=== PATIENT | male | born 2000 | race African-American/Black ===

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

== ENCOUNTER 2022-01-21 11:37 | Emergency (ER) | payer OTHER, SELFPAY ==
[2022-01-21 11:40] VITALS: BP 148/91; PULSE 71; RESP 18; TEMP 37.6; O2SAT 100; BMI 21.9
--- NOTE | 2022-01-21 12:23 | HMH.EDUTC ---
[facility] [place] Disposition Clinical Impression: Exposure to STD Disposition: Home, Self-Care Condition on Discharge: Good Instructions: Chlamydia: The Silent STD, Chlamydia, DI for Chlamydia Additional Instructions: Make sure to follow up for your test results and further treatment Return if needed Straight to ER if any life threatening symptoms Referrals: Fabien Rivas MD [Primary Care Provider] - As needed Time of Disposition: 12:47 Medical Decision Making - Mushtaq Inquiry Pt receiving controlled substance: No Mushtaq was queried for this patient: No Vital Signs: 01/21/22 11:40 01/21/22 12:53 Temperature 99.7 F H 99.7 F H Temperature Source Oral Pulse Rate 71 Pulse Rate [Right Brachial] 71 Respiratory Rate 18 18 Blood Pressure 148/91 H Blood Pressure [Right Arm] 148/91 H Blood Pressure Mean [Right Arm] 110 Blood Pressure Source [Right Arm] Automatic Cuff Blood Pressure Position [Right Arm] Sitting 02 Sat by Pulse Oximetry 100 Oxygen Delivery Method Room Air - Lab Data Lab Results 01/21/22 12:23: Urine Color Yellow, Urine Appearance Clear, Urine pH 7.5, Ur Specific [place] 1.020, Urine Protein Negative, Urine Glucose (UA) Negative, Urine Ketones Negative, Urine Blood Trace-i, Urine Nitrate Negative, Urine Bilirubin Negative, Urine Urobilinogen 0.2, Ur Leukocyte Esterase Trace, Urine RBC 3-5, Urine WBC 3-5, Ur Squamous Epith Cells Occasional, Urine Bacteria None Orders (Tests/Meds): ED MEDICATIONS Discontinued Medications Generic Name Dose Route Start Last Admin Trade Name Sureshq PRN Reason Stop Dose Admin Azithromycin 1,000 mg 01/21/22 12:46 01/21/22 12:50 Azithromycin 250mg Tablet PO 01/21/22 12:47 1,000 mg ONCE ONE Administration ORDERS Category Date Time Status Urine Culture Stat Micro 01/21/22 12:24 Received [facility] [place] HPI - General Stated complaint: STD test Time Seen by Provider: 01/21/22 12:23 Mode of Arrival: Ambulatory Source of Information: Patient Limitations: No Limitations Description of Symptoms (Recalled from Triage Doc. by RN): PATIENT C/O BURNING WITH URINATION X 2 WEEKS. REQUESTING STD TEST HEENT Symptoms (Recalled from RN notes): No Resp Symptoms (Recalled from RN notes): No Skin Symptoms (Recalled from RN notes): No MS Symptoms (Recalled from RN notes): No Functional Status (Recalled from RN notes): WNL - History of Present Illness Provider Complaint: Patient states that he has been having burning with urination for about 2 weeks States that he is worried and wanted to get checked for GC and Chlamydia State that he has been having some unprotected sex States that girlfriend just recenlty tested postive for Chlaymydia - Related Data Home Medications Medication Instructions Recorded Confirmed albuterol sulfate 90 mcg/actuation 1 puff INHALATION Q6H PRN 06/28/19 09/01/20 aerosol inhaler Montelukast Sodium [Singulair 10mg 10 mg PO PM 09/21/19 09/01/20 tablet] Allergies Allergy/AdvReac Type Severity Reaction Status Date / Time amoxicillin [From AMOXIL] Allergy Intermediate I-RASH Verified 01/25/21 16:06 - Worker's Comp Is this a Worker's Comp case?: No [facility] History - Hepatitis A Screen Drug use history?: No High risk sexual behaviors?: No History of sexually transmitted infection?: No Currently employed?: No Childcare worker?: No Do you have indoor plumbing?: Yes Do you have electricity?: Yes Attestation statement:: This patient has been screened for Hepatitis A risk factors. I have reviewed the patient's past medical history: Yes Medical History: Reports:: Asthma Denies:: Cancer, Diabetes Mellitus Type 1, Diabetes Mellitus Type 2, MRSA Other Surgeries: Yes: No Previous Surgery Amputation: No Fractures: Yes (right thumb) - Social History Smoking Status: Unknown if ever smoked Alcohol Intake: never Occupational Status: employed Household Members: family Family Hx:: Cancer, Diabetes, Heart Attack, Stroke, Hyp
[2022-01-21 12:49] LABS: Microscopic, Urine URINE MICROSCOPIC (MICROSCOPIC)
[2022-01-21 12:53] VITALS: BP 148/91; PULSE 71; RESP 18; TEMP 37.6; O2SAT 100
[2022-01-21 12:58] LABS: Appearance,Urine CLEAR (Clear); Bilirubin,Urine Negative (Negative); Blood, Urine TRACE-I (Negative); Color,Urine YELLOW (Yellow); Glucose,Urine (UA) Negative (Negative); Ketones,Urine Negative (Negative); Leukocyte Esterase,Urine TRACE (Negative); Nitrate,Urine Negative (Negative); PH,Urine 7.5 (5.0-8.5); Protein,Urine Negative (Negative); Urobilinogen,Urine 0.2 EU/dl (0.2)
[2022-01-21 13:15] LABS: Squamous Epithelial Cell,Urine Occasional #/hpf (0-5)
[2022-01-24 23:35] LABS: Neisseria gonorrhoeae, NAA Negative (Negative)
== END 2022-01-21 13:02 | disposition home or self-care (01) ==
PROVIDERS: Emergency Provider Nurse Practitioner; PCP Internal Medicine Adolescent Medicine
DX: R30.9 Painful micturition, unspecified (principal); Z20.5 Contact with and (suspected) exposure to viral hepatitis; J45.909 Unspecified asthma, uncomplicated; Z79.51 Long term (current) use of inhaled steroids; Z79.899 Other long term (current) drug therapy; Z88.0 Allergy status to penicillin; Z82.49 Family history of ischemic heart disease and other diseases of the circulatory system; Z83.3 Family history of diabetes mellitus; Z80.9 Family history of malignant neoplasm, unspecified
CPT/HCPCS: 81001; 87086; 87491; 87591; 99213; G0463

== ENCOUNTER 2022-06-03 11:47 | Emergency (ER) | payer OTHER, SELFPAY ==
[2022-06-03 12:14] VITALS: BP 141/88; PULSE 53; RESP 16; TEMP 36.7; O2SAT 99; BMI 21.6
--- NOTE | 2022-06-03 12:18 | HMH.EDUTC ---
[facility] [place] Disposition Clinical Impression: Exposure to COVID-19 virus Disposition: Home, Self-Care Condition on Discharge: Good Instructions: DI for COVID-19 (Suspected or Confirmed ), Preventing the Spread of Coronavirus Discharge Instructions Additional Instructions: Drink plenty of fluids. Take tylenol for pain or fever. Return if you begin to have difficulty breathing. Follow up with your regular doctor. GO TO THE ER FOR ANY WORSENING SYMPTOMS Quarantine until you know the results of your covid-19 test. If it is positive, the health department should call you and give you further instructions about your length of Quarantine and other things. Notify your school or workplace of your results and follow their instructions regarding return to work/school. Referrals: Provider,Referral, [Primary Care Provider] - Time of Disposition: 12:19 Medical Decision Making - Medical Records Medical records reviewed: No: I reviewed the patient's medical records. - Mushtaq Inquiry Pt receiving controlled substance: No Vital Signs: 06/03/22 12:14 06/03/22 12:27 Temperature 98.1 F 98.1 F Temperature Source Oral Pulse Rate 53 L Pulse Rate [Left] 53 L Respiratory Rate 16 16 Blood Pressure 141/88 H Blood Pressure [Right Arm] 141/88 H Blood Pressure Mean [Right Arm] 105 02 Sat by Pulse Oximetry 99 - Lab Data Lab results reviewed: Yes: I reviewed the patient's lab results. [facility] [place] HPI - General Stated complaint: covid exposure, covid test Time Seen by Provider: 06/03/22 12:15 Description of Symptoms (Recalled from Triage Doc. by RN): patient comes in for covid test. no symptoms, only exposure HEENT Symptoms (Recalled from RN notes): No Resp Symptoms (Recalled from RN notes): No Skin Symptoms (Recalled from RN notes): No MS Symptoms (Recalled from RN notes): No Functional Status (Recalled from RN notes): n/a - History of Present Illness Provider Complaint: He is here to be tested for covid-19. He denies any symptoms. He was exposed to covid-19 4 days ago. - Related Data Home Medications Medication Instructions Recorded Confirmed albuterol sulfate 90 mcg/actuation 1 puff INHALATION Q6H PRN 06/28/19 09/01/20 aerosol inhaler Montelukast Sodium [Singulair 10mg 10 mg PO PM 09/21/19 09/01/20 tablet] Allergies Allergy/AdvReac Type Severity Reaction Status Date / Time amoxicillin [From AMOXIL] Allergy Intermediate I-RASH Verified 01/25/21 16:06 - Worker's Comp Is this a Worker's Comp case?: No [facility] History - Hepatitis A Screen Attestation statement:: This patient has been screened for Hepatitis A risk factors. I have reviewed the patient's past medical history: Yes Medical History: Reports:: Asthma Denies:: Cancer, Diabetes Mellitus Type 1, Diabetes Mellitus Type 2, MRSA Other Surgeries: Yes: No Previous Surgery Amputation: No Fractures: Yes (right thumb) - Social History Smoking Status: Unknown if ever smoked Alcohol Intake: never Occupational Status: employed Household Members: family Family Hx:: Cancer, Diabetes, Heart Attack, Stroke, Hypertension ROS Obtained: Yes All systems reviewed & no additional complaints - Constitutional Constitutional: Reports as per HPI, Denies chills, Denies fever(s) - Eyes Eyes: Denies eye discharge - ENT Ears, Nose, Mouth, and Throat: Denies dizziness, Denies otalgia, Denies sore throat - Cardiovascular Cardiovascular: Denies chest pain - Respiratory Respiratory: Denies chest congestion, Reports cough, Denies dyspnea, Denies stridor, Denies wheezing Physical Exam - General General appearance: alert, in no apparent distress - Head Head exam: atraumatic, normocephalic, normal inspection - Eye Eye exam: Present: normal appearance, PERRL, EOMI - ENT ENT exam: Present: normal exam, normal oropharynx, mucous membranes moist, TM's normal bilaterally, normal external ear exam - Neck Neck exam: Present: normal
[2022-06-03 12:27] VITALS: BP 141/88; PULSE 53; RESP 16; TEMP 36.7
== END 2022-06-03 12:28 | disposition home or self-care (01) ==
PROVIDERS: Emergency Provider Nurse Practitioner Family
DX: Z20.822 Contact with and (suspected) exposure to COVID-19 (principal)
CPT/HCPCS: 99212; C9803; G0463; U0003; U0005

== ENCOUNTER 2022-11-29 12:10 | Emergency (ER) | payer OTHER, SELFPAY ==
--- NOTE | 2022-11-29 12:22 | EXP.UTC ---
Discharge Plan Disposition Patient Disposition: Home, Self-Care Condition: Good Prescriptions Prescriptions: New doxycycline hyclate [doxycycline hyclate] 100 mg capsule 100 mg PO Q12 10 Days Qty: 20 0RF No Action albuterol sulfate 90 mcg/actuation HFA aerosol inhaler 1 puff INHALATION Q6H PRN (Reason: ASTHMA) Referrals Follow up/Referrals: Provider,Referral, MD [Primary Care Provider] - See instructions Activity Restrictions/Add. Instructions Additional Instructions/Restrictions: Drink plenty of fluids. Take the medications as directed. Eat food with the antibiotics. This antibiotic is known to cause GI upset on an empty stomach. Follow up with your regular doctor. GO TO THE ER FOR ANY WORSENING SYMPTOMS Abstain from having uprotected sex for 7 days after you complete the antibiotics (doxycycline). Clinical Impressions Clinical Impression: STD exposure Discharge ED Provider: Ramón Lowe [facility] [place] HPI General Stated complaint: possible chlamydia Time Seen by Provider: 11/29/22 12:22 History of Present Illness Provider Complaint: He states that he has been exposed to chlamydia through unprotected sex. He denies any symptoms. Related Data Home Medications Medication Instructions Recorded Confirmed albuterol sulfate 90 mcg/actuation 1 puff inhalation Q6H PRN ASTHMA 06/28/19 11/29/22 aerosol inhaler Previous Rx's Medication Instructions Recorded doxycycline hyclate 100 mg capsule 100 mg PO Q12 10 days #20 caps 11/29/22 Allergies Allergy/AdvReac Type Severity Reaction Status Date / Time amoxicillin [From AMOXIL] Allergy Intermediate I-RASH Verified 11/29/22 12:43 [facility] Disclaimer: The information contained in this section may have been updated after the patient was seen, as this information can be updated by other users. Social History Smoking Status: Unknown if ever smoked alcohol intake: never current occupational status: employed Travel in the last 8 weeks: None household members: family ROS Obtained: Yes All systems reviewed & no additional complaints except as documented Constitutional Constitutional: Denies chills and Denies fever(s) Eyes Eyes: Denies eye discharge ENT Ears, Nose, Mouth, and Throat: Denies dizziness, Denies otalgia and Denies sore throat Cardiovascular Cardiovascular: Denies chest pain Respiratory Respiratory: Denies shortness of breath, Denies chest congestion, Denies cough, Denies stridor and Denies wheezing Gastrointestinal Gastrointestingal: Denies nausea or vomiting Genitourinary Male Genitourinary: Reports as per HPI, Denies hematuria, Denies oliguria, Denies penile discharge, Denies scrotal swelling, Denies urinary frequency and Denies urinary hesitancy Musculoskeletal Musculoskeletal: Reports system reviewed and no additional complaints, except as documented and Denies arthralgias Integumentary/Breasts Skin/Breast: Denies rash Neurologic Neurologic: Denies dizziness and Denies paresthesias Allergic/Immunologic Allergic/Immunologic: Denies wheezing Physical Exam General General appearance: alert and in no apparent distress Head Head exam: atraumatic, normocephalic and normal inspection Eye Eye exam: Present normal appearance, PERRL and EOMI ENT ENT exam: Present normal exam, normal oropharynx, mucous membranes moist, TM's normal bilaterally and normal external ear exam Neck Neck exam: Present normal inspection, full ROM and trachea midline; Absent meningismus or lymphadenopathy Chest Chest inspection: Present normal inspection and symmetric chest wall rise; Absent tenderness Respiratory Respiratory exam: Present normal lung sounds bilaterally; Absent respiratory distress Cardiovascular Cardiovascular exam: Present regular rate and normal rhythm; Absent JVD Abdominal Exam Abdominal exam: Present soft and normal bowel sounds; Absent distention, tenderness or
[2022-11-29 12:30] VITALS: BP 166/84; PULSE 64; RESP 19; TEMP 36.9; O2SAT 100; BMI 22.3
[2022-11-29 12:55] VITALS: BP 166/84; PULSE 64; RESP 19; TEMP 36.9; O2SAT 100
[2022-12-02 00:05] LABS: Neisseria gonorrhoeae, NAA Negative (Negative)
== END 2022-11-29 12:55 | disposition home or self-care (01) ==
PROVIDERS: Emergency Provider Nurse Practitioner Family
DX: A56.8 Sexually transmitted chlamydial infection of other sites (principal)
CPT/HCPCS: 87491; 87591; 99212; 99213; G0463

== ENCOUNTER 2023-04-17 15:52 | Emergency (ER) | payer OTHER, SELFPAY ==
[2023-04-17 16:06] VITALS: BP 143/82; PULSE 93; RESP 14; TEMP 36.6; O2SAT 98; BMI 22.9
--- NOTE | 2023-04-17 16:16 | EXP.UTC ---
Discharge Plan Disposition Patient Disposition: Home, Self-Care Condition: Good Prescriptions Prescriptions: New doxycycline hyclate [doxycycline hyclate] 100 mg capsule 100 mg PO Q12 10 Days Qty: 20 0RF No Action albuterol sulfate [Ventolin HFA] 90 mcg/actuation HFA aerosol inhaler 2 puff INHALATION NEEDED PRN (Reason: Asthma) Activity Restrictions/Add. Instructions Additional Instructions/Restrictions: Apply warm wet compresses to the affected sites three or four times per day for 15 minutes as tolerated. Take the antibiotics as directed. Follow up with your regular doctor. GO TO THE ER FOR ANY WORSENING SYMPTOMS OR CONCERNS Clinical Impressions Clinical Impression: Abscess of perineum Stand Alone Forms Stand Alone Forms: Work/School Release Instructions Patient Instructions: Doxycycline, DI for Skin Abscess Discharge ED Provider: Ramón Lowe [facility] General Stated complaint: Cyst on girish area Mode of Arrival: Ambulatory Source of Information: Patient Limitations: No Limitations Time Seen by Provider: 04/17/23 16:16 Description of Symptoms (Recalled from Triage Doc. by RN): patient states there is a concerning area in my groin HEENT Symptoms (Recalled from RN notes): No Resp Symptoms (Recalled from RN notes): No Skin Symptoms (Recalled from RN notes): Yes MS Symptoms (Recalled from RN notes): No Functional Status (Recalled from RN notes): na History of Present Illness Provider Complaint: He states that he has a painful swollen area on the left side of his groin. This has been present for the past 5 days. He denies any fever/chills. Related Data Home Medications Medication Instructions Recorded Confirmed albuterol sulfate 90 mcg/actuation 2 puff inhalation NEEDED PRN 04/17/23 04/17/23 aerosol inhaler (Ventolin HFA) Asthma Previous Rx's Medication Instructions Recorded doxycycline hyclate 100 mg capsule 100 mg PO Q12 10 days #20 caps 04/17/23 Allergies Allergy/AdvReac Type Severity Reaction Status Date / Time amoxicillin [From AMOXIL] Allergy Intermediate I-RASH Verified 04/17/23 16:05 Worker's Comp Is this a Worker's Comp case?: No [facility] Disclaimer: The information contained in this section may have been updated after the patient was seen, as this information can be updated by other users. Medical History Asthma Surgical History H/O thumb surgery Family History Other No significant family history Social History Smoking Status: Unknown if ever smoked alcohol intake: never current occupational status: employed Travel in the last 8 weeks: None household members: family ROS Obtained: Yes All systems reviewed & no additional complaints except as documented Constitutional Constitutional: Denies chills and Denies fever(s) Eyes Eyes: Denies eye discharge ENT Ears, Nose, Mouth, and Throat: Denies dizziness, Denies otalgia and Denies sore throat Cardiovascular Cardiovascular: Denies chest pain Respiratory Respiratory: Denies shortness of breath, Denies chest congestion, Denies cough, Denies stridor and Denies wheezing Gastrointestinal Gastrointestingal: Denies nausea or vomiting Musculoskeletal Musculoskeletal: Reports system reviewed and no additional complaints, except as documented and Denies arthralgias Integumentary/Breasts Skin/Breast: Reports as per HPI Neurologic Neurologic: Denies dizziness and Denies paresthesias Allergic/Immunologic Allergic/Immunologic: Denies wheezing Physical Exam General General appearance: alert and in no apparent distress Head Head exam: atraumatic, normocephalic and normal inspection Eye Eye exam: Present normal appearance, PERRL and EOMI ENT ENT exam: Present normal exam, normal o
[2023-04-17 16:38] VITALS: BP 145/85; PULSE 83; RESP 16; TEMP 36.5; O2SAT 97
== END 2023-04-17 16:40 | disposition home or self-care (01) ==
PROVIDERS: Emergency Provider Nurse Practitioner Family
DX: L02.215 Cutaneous abscess of perineum (principal)
CPT/HCPCS: 99212; 99214; G0463

== ENCOUNTER 2023-07-11 16:38 | Emergency (ER) | payer OTHER, SELFPAY ==
[2023-07-11 16:45] VITALS: BP 124/70; PULSE 58; RESP 22; TEMP 36.8; O2SAT 100; BMI 22.9
--- NOTE | 2023-07-11 17:00 | EXP.UTC ---
Discharge Plan Disposition Patient Disposition: Home, Self-Care Condition: Good Prescriptions Prescriptions: New cyclobenzaprine 10 mg Tablet 10 mg PO BID PRN (Reason: Muscle Spasm) Qty: 20 0RF methylprednisolone 4 mg Tablets,Dose Pack 4 mg PO DIRECTED Qty: 21 0RF No Action sulfamethoxazole-trimethoprim [Bactrim DS] 800-160 mg tablet 1 tab PO BID 10 Days Qty: 20 0RF albuterol sulfate [Ventolin HFA] 90 mcg/actuation HFA aerosol inhaler 2 puff INHALATION NEEDED PRN (Reason: Asthma) doxycycline hyclate [doxycycline hyclate] 100 mg capsule 100 mg PO Q12 10 Days Qty: 20 0RF Referrals Follow up/Referrals: Cornelio Kennedy MD [Primary Care Provider] - See instructions Activity Restrictions/Add. Instructions Additional Instructions/Restrictions: Go home and rest. It would be best if you rested tomorrow too. No heavy lifting and No twisting for the next few days. The muscle relaxer (cyclobenzaprine--Flexeril) will make you drowsy, so don't drive or operate heavy machinery after taking it. Don't start the oral steroids (medrol dose pack) until tomorrow, since you had the shots in here today. Follow up with your regular doctor. GO TO THE ER FOR ANY WORSENING SYMPTOMS OR CONCERN, ESPECIALLY BOWEL OR BLADDER ISSUES, SADDLE AREA NUMBNESS, FEVER, ETC Clinical Impressions Clinical Impression: Low back pain, Low back strain Stand Alone Forms Stand Alone Forms: Work/School Release Instructions Patient Instructions: Low Back Pain, DI for Low Back Pain, Cyclobenzaprine, Methylprednisolone Injection, Ketorolac Injection Discharge ED Provider: Ramón Lowe [facility] General Stated complaint: lower back pain Mode of Arrival: Ambulatory Source of Information: Patient Limitations: No Limitations Time Seen by Provider: 07/11/23 17:00 Description of Symptoms (Recalled from Triage Doc. by RN): PATIENT C/O LOWER BACK PAIN X APPROX 1.5 WEEKS HEENT Symptoms (Recalled from RN notes): No Resp Symptoms (Recalled from RN notes): No Skin Symptoms (Recalled from RN notes): No MS Symptoms (Recalled from RN notes): Yes Functional Status (Recalled from RN notes): WNL History of Present Illness Provider Complaint: He states that he felt something pull in his right lower back when he was lifting something heavy around 4 days ago. Since then he has had worsening right sided low back pain that radiates down his right leg at time. He denies any bowel or bladder issues. Related Data Home Medications Medication Instructions Recorded Confirmed albuterol sulfate 90 mcg/actuation 2 puff inhalation NEEDED PRN 04/17/23 04/17/23 aerosol inhaler (Ventolin HFA) Asthma Previous Rx's Medication Instructions Recorded doxycycline hyclate 100 mg capsule 100 mg PO Q12 10 days #20 caps 04/17/23 sulfamethoxazole 800 1 tab PO BID 10 days #20 tabs 04/19/23 mg-trimethoprim 160 mg tablet (Bactrim DS) cyclobenzaprine 10 mg tablet 10 mg PO BID PRN Muscle Spasm #20 07/11/23 tabs methylprednisolone 4 mg tablets in 4 mg PO DIRECTED #21 tabs 07/11/23 a dose pack Allergies Allergy/AdvReac Type Severity Reaction Status Date / Time amoxicillin [From AMOXIL] Allergy Intermediate I-RASH Verified 04/17/23 16:05 Worker's Comp Is this a Worker's Comp case?: No [facility] Disclaimer: The information contained in this section may have been updated after the patient was seen, as this information can be updated by other users. Medical History Asthma Surgical History H/O thumb surgery Family History Other No significant family history Social History Smoking Status: Unknown if ever smoked alcohol intake: never current occupational status: employed Travel in the last 8 weeks: None househol
[2023-07-11 17:38] VITALS: BP 124/70; PULSE 58; RESP 22; TEMP 36.8; O2SAT 100
== END 2023-07-11 17:39 | disposition home or self-care (01) ==
PROVIDERS: Emergency Provider Nurse Practitioner Family; PCP Family Medicine
DX: S39.012A Strain of muscle, fascia and tendon of lower back, initial encounter (principal); J45.909 Unspecified asthma, uncomplicated; X50.0XXA Overexertion from strenuous movement or load, initial encounter
CPT/HCPCS: 96372; 99212; 99214; G0463

== ENCOUNTER 2024-01-18 13:23 | Emergency (ER) | payer SELFPAY ==
--- NOTE | 2024-01-18 14:09 | EXP.UTC ---
Discharge Plan Disposition Patient Disposition: Home, Self-Care Condition: Good Prescriptions Prescriptions: New methylprednisolone 4 mg Tablets,Dose Pack 4 mg PO DIRECTED 6 Days Qty: 21 0RF Rx Instructions: Take 1 pack as directed for 6 days pwgyenpwfdylwoc-npcneoggo-HC [Bromfed DM] 2-30-10 mg/5 mL Syrup 5 ml PO Q6H PRN (Reason: Cough) Qty: 240 0RF ondansetron 4 mg Tablet,Disintegrating 4 mg PO Q8H PRN (Reason: Nausea) Qty: 12 0RF cefdinir 300 mg capsule 300 mg PO BID Qty: 20 0RF No Action albuterol sulfate [Ventolin HFA] 90 mcg/actuation HFA aerosol inhaler 2 puff INHALATION NEEDED PRN (Reason: Asthma) Referrals Follow up/Referrals: Cornelio Kennedy MD [Primary Care Provider] - See instructions Activity Restrictions/Add. Instructions Additional Instructions/Restrictions: Drink plenty of fluids. Take tylenol or ibuprofen for pain or fever. Take the medications as directed. Follow up with your regular doctor. GO TO THE ER FOR ANY WORSENING SYMPTOMS Throw your tooth brush away and get a new one. Clinical Impressions Clinical Impression: Strep throat Stand Alone Forms Stand Alone Forms: Work/School Release Instructions Patient Instructions: Strep Throat, DI for Strep Throat Discharge ED Provider: Ramón Lowe [facility] [place] General Stated complaint: sore throat, headache, cough Time Seen by Provider: 01/18/24 14:08 History of Present Illness Provider Complaint: He states that he has had fever, very sore throat, sinus drainage, cough, and nausea for the past 2 days. Related Data Home Medications Medication Instructions Recorded Confirmed albuterol sulfate 90 mcg/actuation 2 puff inhalation NEEDED PRN 04/17/23 01/18/24 aerosol inhaler (Ventolin HFA) Asthma Previous Rx's Medication Instructions Recorded njvguozfymrxjdw-dkzyenlmgvzhovo-RF 5 ml PO Q6H PRN Cough #240 mL 01/18/24 2 mg-30 mg-10 mg/5 mL oral syrup (Bromfed DM) cefdinir 300 mg capsule 300 mg PO BID #20 caps 01/18/24 methylprednisolone 4 mg tablets in 4 mg PO DIRECTED 6 days #21 tabs 01/18/24 a dose pack ondansetron 4 mg disintegrating 4 mg PO Q8H PRN Nausea #12 tabs 01/18/24 tablet Allergies Allergy/AdvReac Type Severity Reaction Status Date / Time amoxicillin [From AMOXIL] Allergy Intermediate I-RASH Verified 01/18/24 14:45 [facility] Disclaimer: The information contained in this section may have been updated after the patient was seen, as this information can be updated by other users. Medical History Asthma Surgical History H/O thumb surgery Family History Other No significant family history Social History Smoking Status: Unknown if ever smoked alcohol intake: never current occupational status: employed Travel in the last 8 weeks: None household members: family ROS Obtained: Yes All systems reviewed & no additional complaints except as documented Constitutional Constitutional: Reports chills and Reports fever(s) Eyes Eyes: Denies eye discharge ENT Ears, Nose, Mouth, and Throat: Reports as per HPI Cardiovascular Cardiovascular: Denies chest pain Respiratory Respiratory: Denies chest congestion and Reports cough Gastrointestinal Gastrointestingal: Reports nausea; Denies abdominal pain, constipation, cramping, diarrhea or vomiting Musculoskeletal Musculoskeletal: Denies arthralgias Integumentary/Breasts Skin/Breast: Denies rash Neurologic Neurologic: Denies paresthesias Physical Exam General General appearance: alert and in no apparent distress Head Head exam: atraumatic, normocephalic and normal inspection Eye Eye exam: Present normal appearance, PERRL and EOMI ENT ENT exam: Present mucous membranes moist and normal external ear exam Expanded ENT Exam TM/Canal exam: Bilateral TM: erythema and bulging Nose exam: Absent sinus tenderness Mouth exam: Present normal external inspection; Absent drooling Teeth exam: Present normal inspection Throat exam: Present tonsillar erythema, tonsillomegaly and tonsillar exudate Neck Neck exam: Present normal inspection, full ROM and trachea midline; Absent tenderness, meningismus or lymphadenopathy Chest Chest inspection: Present normal inspection and symmetric chest wall rise; Absent tenderness Respiratory Respiratory exam: Present normal lung sounds bilaterally; Absent respiratory distress, wheezes, stridor or accessory muscle use Cardiovascular Cardiovascular exam: Present regular rate and normal rhythm; Absent systolic murmur or diastolic murmur Abdominal Exam Abdominal exam: Present soft and normal bowel sounds; Absent distention, tenderness, guarding, rebound or rigidity Extremities Exam Extremities exam: Present normal inspection and normal capillary refill; Absent calf tenderness Back Exam Back exam: Present normal inspection and full ROM; Absent tenderness, CVA tenderness (R) or CVA tenderness (L) Neurological Exam Neurological exam: Present alert, oriented X3 and CN II-XII intact Psychiatric Psychiatric exam: Present normal affect and normal mood Skin Skin exam: Present warm, dry, intact and normal color Medical Decision Making Medical Records Medical records reviewed: No I reviewed the patient's medical records. Mushtaq Inquiry Pt receiving controlled substance: No
[2024-01-18 14:25] VITALS: BP 137/90; PULSE 58; RESP 16; TEMP 37.1; O2SAT 100; BMI 22.3
[2024-01-18 15:01] LABS: UTC Influenza A Antigen Negative (Negative); UTC Influenza B Antigen Negative (Negative); UTC Strep Screen (Rapid) Positive (Negative)
[2024-01-18 15:40] VITALS: BP 138/90; PULSE 71; RESP 18; TEMP 36.4; O2SAT 97
== END 2024-01-18 15:40 | disposition home or self-care (01) ==
PROVIDERS: Emergency Provider Nurse Practitioner Family; PCP Family Medicine
DX: J02.0 Streptococcal pharyngitis (principal); R07.0 Pain in throat; R51.9 Headache, unspecified; R50.9 Fever, unspecified; R05.9 Cough, unspecified; R11.0 Nausea; R09.81 Nasal congestion
CPT/HCPCS: 87804; 87880; 99212; 99214; G0463

== ENCOUNTER 2024-03-23 22:07 | Emergency (ER) | payer SELFPAY ==
[2024-03-23 22:07] VITALS: BP 128/86; PULSE 66; RESP 16; TEMP 36.8; O2SAT 100; BMI 22.9
--- NOTE | 2024-03-24 00:41 | HMH.EDGENADL ---
Discharge Plan Disposition Patient Disposition: Home, Self-Care Condition: Good Prescriptions Prescriptions: New doxycycline hyclate 100 mg tablet 100 mg PO BID 7 Days Qty: 14 0RF No Action albuterol sulfate [Ventolin HFA] 90 mcg/actuation HFA aerosol inhaler 2 puff INHALATION NEEDED PRN (Reason: Asthma) methylprednisolone 4 mg Tablets,Dose Pack 4 mg PO DIRECTED 6 Days Qty: 21 0RF Rx Instructions: Take 1 pack as directed for 6 days ukcwyizxzrqffnf-eqbxeawqq-VY [Bromfed DM] 2-30-10 mg/5 mL Syrup 5 ml PO Q6H PRN (Reason: Cough) Qty: 240 0RF ondansetron 4 mg Tablet,Disintegrating 4 mg PO Q8H PRN (Reason: Nausea) Qty: 12 0RF cefdinir 300 mg capsule 300 mg PO BID Qty: 20 0RF Referrals Follow up/Referrals: Fabien Rivas MD [Primary Care Provider] - See instructions Activity Restrictions/Add. Instructions Additional Instructions/Restrictions: You were evaluated in the emergency department today. Please slat pickler your prescription for antibiotics and take the full course as prescribed. Have any sexual partners treated. Avoid sexual intercourse until you are you have completed your antibiotic treatment. Your sexually-transmitted testing is pending at this time. It will result in several days. You may follow results in your chart. Return to the emergency department for new or worsening symptoms. Please follow-up with your primary care provider. Clinical Impressions Clinical Impression: Dysuria, Urethral discharge Instructions Patient Instructions: How to Detect and Treat STDs Discharge ED Provider: Becky Saunders General Adult HPI General Chief complaint: Urogenital-Male Stated complaint: STD panel Time Seen by Provider: 03/24/24 00:14 Mode of Arrival: Ambulatory Source of Information: Patient Limitations: No Limitations Description of Symptoms (Recalled from ER Triage Doc. by RN): patient with CC of yellow drainage coming from penis, and burning sensation when he pees x 2days. History of Present Illness HPI narrative: This patient is a 24-year-old male who denies significant past medical history presenting to the emergency department for evaluation with concern for yellow drainage coming from his penis as well as burning when he pees x 2 days. He notes that he is concerned he has a sexually transmitted infection. He denies any other concerns, such as fevers, chills, nausea, vomiting, flank pain, or other issues. He denies any known history of sexually transmitted infections. No bumps, lesions, or wounds. Related Data Home Medications Medication Instructions Recorded Confirmed albuterol sulfate 90 mcg/actuation 2 puff inhalation NEEDED PRN 04/17/23 01/18/24 aerosol inhaler (Ventolin HFA) Asthma Previous Rx's Medication Instructions Recorded ghxwqdecxgpxrxm-ppzqwqbdniafrdc-EU 5 ml PO Q6H PRN Cough #240 mL 01/18/24 2 mg-30 mg-10 mg/5 mL oral syrup (Bromfed DM) cefdinir 300 mg capsule 300 mg PO BID #20 caps 01/18/24 methylprednisolone 4 mg tablets in 4 mg PO DIRECTED 6 days #21 tabs 01/18/24 a dose pack ondansetron 4 mg disintegrating 4 mg PO Q8H PRN Nausea #12 tabs 01/18/24 tablet doxycycline hyclate 100 mg tablet 100 mg PO BID 7 days #14 tabs 03/24/24 Allergies Allergy/AdvReac Type Severity Reaction Status Date / Time amoxicillin [From AMOXIL] Allergy Intermediate I-RASH Verified 01/18/24 14:45 [facility] Disclaimer: The information contained in this section may have been updated after the patient was seen, as this information can be updated by other users. Medical History Asthma Surgical History H/O thumb surgery Family History Other No significant family history Social History Smoking Status: Current every day smoker alcohol intake: never current occupational status: employed Travel in the last 8 weeks: None household members: family ROS Obtained: Yes All systems reviewed & no additional complaints except as documented Physical Exam General General appearance: alert and in no apparent distress Head Head exam: atraumatic and normocephalic Eye Eye exam: Present normal appearance, PERRL and EOMI ENT ENT exam: Present normal exam, normal oropharynx, mucous membranes moist and normal external ear exam Neck Neck exam: Present normal inspection, full ROM and trachea midline; Absent tenderness Chest Chest inspection: Present normal inspection and symmetric chest wall rise; Absent tenderness Respiratory Respiratory exam: Present normal lung sounds bilaterally; Absent respiratory distress, wheezes, stridor or accessory muscle use Cardiovascular Cardiovascular exam: Present regular rate and normal rhythm Abdominal Exam Abdominal exam: Present soft; Absent distention, tenderness or guarding Extremities Exam Extremities exam: Present normal inspection, full ROM and normal capillary refill; Absent tenderness or edema Back Exam Back exam: Present normal inspection and full ROM; Absent tenderness Neurological Exam Neurological exam: Present alert, oriented X3, CN II-XII intact and normal gait; Absent motor sensory deficit Psychiatric Psychiatric exam: Present normal affect and normal mood Skin Skin exam: Present warm and dry Medical Decision Making Medical Records Medical records reviewed: Yes I reviewed the patient's medical records. Mushtaq Inquiry Pt receiving controlled substance: No Vital Signs: 03/23/24 22:07 03/24/24 01:33 Temperature 98.3 F 98.0 F Temperature Source Oral Oral Pulse Rate 87 Pulse Rate [Right] 66 Respiratory Rate 16 16 Blood Pressure 123/82 Blood Pressure [Right Arm] 128/86 Blood Pressure Mean [Right Arm] 100 Blood Pressure Source Automatic Cuff Blood Pressure Source [Right Arm] Automatic Cuff Blood Pressure Position Sitting Blood Pressure Position [Right Arm] Sitting 02 Sat by Pulse Oximetry 100 Oxygen Delivery Method Room Air Room Air Lab Data Lab results reviewed: Yes I reviewed the patient's lab results. Lab Results 03/24/24 00:45: Urine Color Yellow, Urine Appearance Cloudy, Urine pH 7.0, Ur Specific [place] 1.025, Urine Protein Trace, Urine Glucose (UA) Negative, Urine Ketones Negative, Urine Blood Trace-i, Urine Nitrate Negative, Urine Bilirubin 1+ A, Urine Urobilinogen 0.2, Ur Leukocyte Esterase 2+ A, Urine RBC None, Urine WBC Tntc, Ur Squamous Epith Cells Occasional, Urine Bacteria 1+ Orders (Tests/Meds): ED MEDICATIONS Discontinued Medications Generic Name Dose Route Start Last Admin Trade Name Leatha PRN Reason Stop Dose Admin Ceftriaxone Sodium 500 mg 03/24/24 00:27 03/24/24 00:50 Ceftriaxone 500mg Vial IM 03/24/24 00:28 500 mg ONCE ONE Administration Doxycycline Hyclate 100 mg 03/24/24 00:27 03/24/24 00:50 Doxycycline Hycl 100 Mg Tablet PO 03/24/24 00:28 100 mg ONCE ONE Administration Lidocaine HCl 0 ml 03/24/24 00:27 03/24/24 00:50 Lidocaine 1% 5ml Pf Vial IM 03/24/24 00:28 5 ml ONCE ONE Administration ORDERS Category Date Time Status UA [Urinalysis and Microscopic] Stat Lab 03/24/24 00:45 Completed Urine Culture Stat Micro 03/24/24 00:26 Received Medical Decision Narrative: In summary, this patient is a 24-year-old male presenting to the Emergency Department for evaluation of drainage from his penis as well as dysuria x 2 days. Differential diagnoses considered include but are not limited to gonorrhea, chlamydia, cystitis, pyelonephritis. Ruling out the most morbid conditions drove assessment. I reviewed patient's past medical records which was pertinent for a positive prior chlamydia test. On exam, the patient is well-appearing without systemic symptoms or abnormality of vital signs. No wounds or lesions concerning for herpes. After shared decision-making with the patient, will plan to obtain urine gonorrhea and committee a testing and treat empirically with IM Rocephin as well as oral doxycycline. I had a long discussion with the patient regarding completing treatment, avoiding unprotected sex until treatment is completed, and having all partners get treated to reduce risk of reinfection. He expressed understanding and agreement. Patient was discharged home after all questions were answered with prescription for doxycycline. He received IM Rocephin prior to discharge. Critical Care Critical Care Time Critical Care Time: No
[2024-03-24] MEDS: cefTRIAXone 500MG VIAL 500 MG IM (00:50)
[2024-03-24] MEDS: DOXYCYCLINE HYCL 100 MG TABLET PO (00:50)
[2024-03-24] MEDS: LIDOCAINE 1% 5ML PF VIAL IM (00:50)
[2024-03-24 01:00] LABS: Microscopic, Urine URINE MICROSCOPIC (MICROSCOPIC)
[2024-03-24 01:08] LABS: Appearance,Urine CLOUDY (Clear); Blood, Urine TRACE-I (Negative); Color,Urine YELLOW (Yellow); Glucose,Urine (UA) Negative (Negative); Ketones,Urine Negative (Negative); Leukocyte Esterase,Urine 2+ (Negative); Nitrate,Urine Negative (Negative); Protein,Urine TRACE (Negative); Specific Gravity, Urine 1.025 (1.005-1.030); Urobilinogen,Urine 0.2 EU/dl (0.2)
[2024-03-24 01:09] LABS: Bilirubin,Urine 1+ (Negative)
[2024-03-24 01:19] LABS: Bacteria,Urine 1+ /lpf; Squamous Epithelial Cell,Urine Occasional #/hpf (0-5); WBC,Urine TNTC #/hpf (0-3)
[2024-03-24 01:33] VITALS: BP 123/82; PULSE 87; RESP 16; TEMP 36.7; O2SAT 99
--- NOTE | 2024-03-26 16:48 | PC.NURSE ---
urine culture results discussed with , pt dc with doxycycline, ntd
[2024-03-27 21:40] LABS: Neisseria gonorrhoeae, NAA Positive (Negative)
--- NOTE | 2024-03-28 11:46 | PC.NURSE ---
left v/m on pt's cell phone to discuss g/c results.
== END 2024-03-24 01:34 | disposition home or self-care (01) ==
PROVIDERS: Emergency Provider Emergency Medicine; PCP Internal Medicine Adolescent Medicine
DX: R30.0 Dysuria (principal); B96.89 Other specified bacterial agents as the cause of diseases classified elsewhere; R36.9 Urethral discharge, unspecified; A54.9 Gonococcal infection, unspecified
CPT/HCPCS: 81001; 87086; 87491; 87591; 96372; 99283; J0696

== ENCOUNTER 2024-07-09 15:58 | Emergency (ER) | payer OTHER, SELFPAY ==
[2024-07-09 16:40] VITALS: BP 132/87; PULSE 75; RESP 20; TEMP 37.4; O2SAT 98; BMI 21.1
[2024-07-09 17:11] LABS: UTC Strep Screen (Rapid) Negative (Negative)
--- NOTE | 2024-07-09 17:15 | ED_ITS ---
Discharge Plan Disposition Patient Disposition: Home, Self-Care Condition: Good Prescriptions Prescriptions: New azithromycin [Zithromax] 250 mg tablet 250 mg PO UD DOSE PK Qty: 6 0RF Rx Instructions: Take two (2) tablets today, then one (1) tablet days #2 thru #5 [id number] [Bromfed DM] 2-30-10 mg/5 mL Syrup 5 ml PO Q6H PRN (Reason: Cough) Qty: 240 0RF No Action cetirizine 10 mg tablet 10 mg PO DAILY Patient Comments: TAKE 1 TABLET BY MOUTH ONCE DAILY montelukast 10 mg tablet 10 mg PO DAILY Patient Comments: TAKE 1 TABLET BY MOUTH EVERY EVENING albuterol sulfate [Ventolin HFA] 90 mcg/actuation HFA aerosol inhaler 2 puff INHALATION Q4HP PRN (Reason: Asthma) Patient Comments: INHALE 2 PUFFS BY MOUTH EVERY 4 TO 6 HOURS NEEDED fluticasone propionate 50 mcg/actuation spray,suspension 1 spray INTRANASAL DAILY Patient Comments: SHAKE LIQUID AND USE 1 TO 2 SPRAYS IN EACH NOSTRIL DAILY Referrals Follow up/Referrals: Cornelio Kennedy MD [Primary Care Provider] - See instructions Activity Restrictions/Add. Instructions Additional Instructions/Restrictions: Drink plenty of fluids. Take tylenol or ibuprofen for pain or fever. Take the medications as directed. Follow up with your regular doctor. GO TO THE ER FOR ANY WORSENING SYMPTOMS Clinical Impressions Clinical Impression: Acute viral syndrome, Pharyngitis Stand Alone Forms Stand Alone Forms: Work/School Release Instructions Patient Instructions: DI for Pharyngitis/Tonsillopharyngitis -- Adult, DI for Viral Syndrome Print Language Print Language: Vietnamese Discharge ED Provider: Ramón Lowe [facility] General Stated complaint: Congestion,sore throat,cough,diarrhea Mode of Arrival: Ambulatory Source of Information: Patient Limitations: No Limitations Time Seen by Provider: 07/09/24 17:15 Description of Symptoms (Recalled from Triage Doc. by RN): PATIENT C/O CHEST CONGESTION AND SORE THROAT THAT STARTED YESTERDAY HEENT Symptoms (Recalled from RN notes): Yes Resp Symptoms (Recalled from RN notes): No Skin Symptoms (Recalled from RN notes): No MS Symptoms (Recalled from RN notes): No Functional Status (Recalled from RN notes): WNL Related Data Home Medications ?Medication ?Instructions ?Recorded ?Confirmed albuterol sulfate 90 mcg/actuation 2 puff inhalation Q4HP PRN Asthma 07/09/24 07/09/24 aerosol inhaler (Ventolin HFA) cetirizine 10 mg tablet 10 mg PO DAILY 07/09/24 07/09/24 fluticasone propionate 50 1 spray intranasal DAILY 07/09/24 07/09/24 mcg/actuation nasal spray,suspension montelukast 10 mg tablet 10 mg PO DAILY 07/09/24 07/09/24 Previous Rx's ?Medication ?Instructions ?Recorded azithromycin 250 mg tablet 250 mg PO UD DOSE PK #6 tabs 07/09/24 (Zithromax) vvkaiimnmfiotfz-gnvhrpahyiyawkw-QC 5 ml PO Q6H PRN Cough #240 mL 07/09/24 2 mg-30 mg-10 mg/5 mL oral syrup (Bromfed DM) Allergies Allergy/AdvReac Type Severity Reaction Status Date / Time amoxicillin [From AMOXIL] Allergy Intermediate I-RASH Verified 01/18/24 14:45 Worker's Comp Is this a Worker's Comp case?: No [facility] Disclaimer: The information contained in this section may have been updated after the mary jo nt was seen, as this information can be updated by other users. Medical History Asthma Surgical History H/O thumb surgery Family History Other No significant family history Social History Smoking Status: Current every day smoker alcohol intake: never current occupational status: employed Travel in the last 8 weeks: None household members: family ROS Obtained: Yes All systems reviewed & no additional complaints except as documented Constitutional Constitutional: Reports chills and Reports fever(s) Eyes Eyes: Denies eye discharge ENT Ears, Nose, Mouth, and Throat: Reports as per HPI Cardiovascular Cardiovascular: Denies chest pain Respiratory Respiratory: Denies chest congestion and Reports cough Gastrointestinal Gastrointestingal: Reports nausea; Denies abdominal pain, constipation, cramping, diarrhea or vomiting Musculoskeletal Musculoskeletal: Denies arthralgias Integumentary/Breasts Skin/Breast: Denies rash Neurologic Neurologic: Denies paresthesias Physical Exam General General appearance: alert and in no apparent distress Head Head exam: atraumatic, normocephalic and normal inspection Eye Eye exam: Present normal appearance, PERRL and EOMI ENT ENT exam: Present mucous membranes moist and normal external ear exam Expanded ENT Exam TM/Canal exam: Bilateral TM: erythema and bulging Nose exam: Absent sinus tenderness Mouth exam: Present normal external inspection; Absent drooling Teeth exam: Present normal inspection Throat exam: Present tonsillar erythema, tonsillomegaly and tonsillar exudate Neck Neck exam: Present normal inspection, full ROM and trachea midline; Absent tenderness, meningismus or lymphadenopathy Chest Chest inspection: Present normal inspection and symmetric chest wall rise; Absent tenderness Respiratory Respiratory exam: Present normal lung sounds bilaterally; Absent respiratory distress, wheezes, stridor or accessory muscle use Cardiovascular Cardiovascular exam: Present regular rate and normal rhythm; Absent systolic murmur or diastolic murmur Abdominal Exam Abdominal exam: Present soft and normal bowel sounds; Absent distention, tenderness, guarding, rebound or rigidity Extremities Exam Extremities exam: Present normal inspection and normal capillary refill; Absent calf tenderness Back Exam Back exam: Present normal inspection and full ROM; Absent tenderness, CVA tenderness (R) or CVA tenderness (L) Neurological Exam Neurological exam: Present alert, oriented X3 and CN II-XII intact Psychiatric Psychiatric exam: Present normal affect and normal mood Skin Skin exam: Present warm, dry, intact and normal color Medical Decision Making Medical Records Medical records reviewed: No I reviewed the patient's medical records. Mushtaq Inquiry Pt receiving controlled substance: No Vital Signs: 07/09/24 16:40 Temperature 99.4 F Temperature Source Oral Pulse Rate [Left] 75 Respiratory Rate 20 Blood Pressure [Left Arm] 132/87 Blood Pressure Mean [Left Arm] 102 Blood Pressure Source [Left Arm] Automatic Cuff Blood Pressure Position [Left Arm] Sitting 02 Sat by Pulse Oximetry 98 Oxygen Delivery Method Room Air Lab Data Lab results reviewed: Yes I reviewed the patient's lab results. Lab Results 07/09/24 16:55: Strep Scn Rapid Clinic Negative Orders (Tests/Meds): ORDERS Category Date Time Status Strep Screen Confirmation Stat Micro 07/09/24 16:55 Received
[2024-07-09 17:43] VITALS: BP 132/87; PULSE 75; RESP 20; TEMP 37.4; O2SAT 98
== END 2024-07-09 17:44 | disposition home or self-care (01) ==
PROVIDERS: Emergency Provider Nurse Practitioner Family; PCP Family Medicine
DX: U07.1 COVID-19 (principal); J02.8 Acute pharyngitis due to other specified organisms; R05.9 Cough, unspecified
CPT/HCPCS: 87635; 87880; 99212; 99214; G0463

== ENCOUNTER 2025-02-17 20:38 | Emergency (ER) | payer OTHER, SELFPAY ==
[2025-02-17 20:55] VITALS: BP 126/80; PULSE 72; RESP 18; TEMP 36.8; O2SAT 100; BMI 22.9
--- NOTE | 2025-02-17 21:07 | PC.NURSE ---
pt presents with multiple little bumps to diffuse chest. No fevers, no drainage.
--- NOTE | 2025-02-17 21:19 | ED_ITS ---
Discharge Plan Disposition Patient Disposition: Home, Self-Care Prescriptions Prescriptions: No Action cetirizine 10 mg tablet 10 mg PO DAILY Patient Comments: TAKE 1 TABLET BY MOUTH ONCE DAILY montelukast 10 mg tablet 10 mg PO DAILY Patient Comments: TAKE 1 TABLET BY MOUTH EVERY EVENING albuterol sulfate [Ventolin HFA] 90 mcg/actuation HFA aerosol inhaler 2 puff INHALATION Q4HP PRN (Reason: Asthma) Patient Comments: INHALE 2 PUFFS BY MOUTH EVERY 4 TO 6 HOURS NEEDED fluticasone propionate 50 mcg/actuation spray,suspension 1 spray INTRANASAL DAILY Patient Comments: SHAKE LIQUID AND USE 1 TO 2 SPRAYS IN EACH NOSTRIL DAILY azithromycin [Zithromax] 250 mg tablet 250 mg PO UD DOSE PK Qty: 6 0RF Rx Instructions: Take two (2) tablets today, then one (1) tablet days #2 thru #5 [id number]-gkjiwwjei-IR [Bromfed DM] 2-30-10 mg/5 mL Syrup 5 ml PO Q6H PRN (Reason: Cough) Qty: 240 0RF Referrals Follow up/Referrals: Cornelio Kennedy MD [Primary Care Provider] - See instructions Lena Larson MD [Referring] - See instructions Activity Restrictions/Add. 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 Assuming that you stop shaving closely to your skin you should see complete resolution of your symptoms within a few months. If you continue to shave and have refractory symptoms topical steroids and topical antibiotics could be used to improve your symptoms if that is the case please follow-up with your primary care doctor or a network control supervisor. A referral has been made if your symptoms do not improve within a few weeks. If you notice any significant redness tenderness or worsening lesions please return to the emergency department. Clinical Impressions Clinical Impression: Pseudofolliculitis barbae Instructions Patient Instructions: DI for Skin Abscess Print Language Print Language: Citizen Of [place] Discharge ED Provider: Juan Manuel Byrd General Adult HPI General Chief complaint: Skin/Abscess/Foreign Body Stated complaint: Razor bumps on chest Time Seen by Provider: 02/17/25 21:11 Mode of Arrival: Ambulatory Source of Information: Patient Description of Symptoms (Recalled from ER Triage Doc. by RN): Pt presents for evaluation of razors bumps to his chest x 2 days History of Present Illness HPI narrative: Patient is a 25-year-old male presents today with bumps on his chest. States that he use a straight razor to shave his chest on Monday and noticed the symptoms the next day on Monday. No significant redness or tenderness or fevers or chills or spreading lesions just wanted to get it checked out today. Related Data Home Medications ?Medication ?Instructions ?Recorded ?Confirmed albuterol sulfate 90 mcg/actuation 2 puff inhalation Q4HP PRN Asthma 07/09/24 07/09/24 aerosol inhaler (Ventolin HFA) cetirizine 10 mg tablet 10 mg PO DAILY 07/09/24 07/09/24 fluticasone propionate 50 1 spray intranasal DAILY 07/09/24 07/09/24 mcg/actuation nasal spray,suspension montelukast 10 mg tablet 10 mg PO DAILY 07/09/24 07/09/24 Previous Rx's ?Medication ?Instructions ?Recorded azithromycin 250 mg tablet 250 mg PO UD DOSE PK #6 tabs 07/09/24 (Zithromax) [id number]-iswrlgpytwfacfv-UK 5 ml PO Q6H PRN Cough #240 mL 07/09/24 2 mg-30 mg-10 mg/5 mL oral syrup (Bromfed DM) Allergies Allergy/AdvReac Type Severity Reaction Status Date / Time amoxicillin (From AMOXIL) Allergy Intermediate I-RASH Verified 01/18/24 14:45 PFSH PFS Disclaimer: The information contained in this section may have been updated after the patient was seen, as this information can be updated by other users. Medical History Asthma Surgical History H/O thumb surgery Family History Other No significant family history Social History Smoking Status: Never smoker alcohol intake: never current occupational status: employed Travel in the last 8 weeks: None household members: family Have you lived/traveled outside US in past 30 days?: No Contact w/someone who lives/traveled outside US past 30 days?: No Exposure to someone with infectious disease in past 14 days?: No Do you have a fever (greater than 100.4 F or 38 C)?: No Have you tested positive for COVID-19: No Exposed to someone with COVID-19 in past 14 days?: No Do you have a sore throat?: No Do you have a cough?: No Do you have any weakness?: No Do you have any diarrhea?: No Are you experiencing any unusual bleeding?: No Do you have any muscle aches/pain?: No Do you have any abdominal pain?: No Are you experiencing loss of taste or smell?: No Other Medical History Have you received the Flu Vaccine for this season: No Have you received the Pneumonia Vaccine: No ROS Obtained: Yes All systems reviewed & no additional complaints except as documented Physical Exam General General appearance: alert and in no apparent distress Chest Chest inspection: Present other (Numerous superficial small pustule/raised lesions on the anterior chest where there was a recent close skin shaving no significant erythema or tenderness or inflammation surrounding any of these) Respiratory Respiratory exam: Present normal lung sounds bilaterally Cardiovascular Cardiovascular exam: Present regular rate Neurological Exam Neurological exam: Present alert and oriented X3 Medical Decision Making Medical Records Screening: Per USPSTF and CDC recommendations, given the prevalence of disease in our region, it is our hospital?s policy to screen for HIV and viral Hepatitis for all patients aged 18 and over and those with ongoing risk factors. Mushtaq Inquiry Pt receiving controlled substance: No Vital Signs: 02/17/25 20:55 Temperature 98.3 F Temperature Source Oral Pulse Rate [Right] 72 Respiratory Rate 18 Blood Pressure [Right Arm] 126/80 Blood Pressure Mean [Right Arm] 95 Blood Pressure Source [Right Arm] Automatic Cuff Blood Pressure Position [Right Arm] Sitting 02 Sat by Pulse Oximetry 100 Oxygen Delivery Method Room Air Medical Decision Narrative: Well-appearing nontoxic 25-year-old with what appears to be razor bumps or pseudofolliculitis barbae. Discussed with him cessation of close hair removal and they should have improvement in symptoms in 1 to 6 months. Likely will have significant improvement if he continues to stop shaving but if he does not told him that he could follow-up with dermatology to get topical steroids and topical antibiotics or other adjunctive medical therapy. None of that is indicated at the moment. Patient was discharged in stable condition. Critical Care Critical Care Time Critical Care Time: No
[2025-02-17 21:20] VITALS: BP 126/80; PULSE 72; RESP 18; TEMP 36.8; O2SAT 99
== END 2025-02-17 21:22 | disposition home or self-care (01) ==
PROVIDERS: Emergency Provider Student in an Organized Health Care Education/Training Program; PCP Family Medicine
DX: L73.1 Pseudofolliculitis barbae (principal); R21 Rash and other nonspecific skin eruption
CPT/HCPCS: 99281

== ENCOUNTER 2025-03-17 22:22 | Emergency (ER) | payer OTHER, SELFPAY ==
[2025-03-17 22:29] VITALS: BP 155/98; PULSE 58; RESP 18; TEMP 37.1; O2SAT 98; BMI 23.2
[2025-03-17 22:39] LABS: Coronavirus 19, PCR Not Detected (NotDetected); Influenza A, PCR Not Detected (NotDetected); Influenza B, PCR Not Detected (NotDetected)
[2025-03-17 23:01] LABS: Strep Scrn Group A (Rapid) Negative (Negative)
--- NOTE | 2025-03-17 23:13 | ED_ITS ---
Discharge Plan Disposition Patient Disposition: Home, Self-Care Condition: Good Chief Complaint: Upper Respiratory Infection Prescriptions Prescriptions: No Action cetirizine 10 mg tablet 10 mg PO DAILY Patient Comments: TAKE 1 TABLET BY MOUTH ONCE DAILY montelukast 10 mg tablet 10 mg PO DAILY Patient Comments: TAKE 1 TABLET BY MOUTH EVERY EVENING albuterol sulfate [Ventolin HFA] 90 mcg/actuation HFA aerosol inhaler 2 puff INHALATION Q4HP PRN (Reason: Asthma) Patient Comments: INHALE 2 PUFFS BY MOUTH EVERY 4 TO 6 HOURS NEEDED fluticasone propionate 50 mcg/actuation spray,suspension 1 spray INTRANASAL DAILY Patient Comments: SHAKE LIQUID AND USE 1 TO 2 SPRAYS IN EACH NOSTRIL DAILY azithromycin [Zithromax] 250 mg tablet 250 mg PO UD DOSE PK Qty: 6 0RF Rx Instructions: Take two (2) tablets today, then one (1) tablet days #2 thru #5 [id number]-aalsnzvyy-ZK [Bromfed DM] 2-30-10 mg/5 mL Syrup 5 ml PO Q6H PRN (Reason: Cough) Qty: 240 0RF Referrals Follow up/Referrals: Cornelio Kennedy MD [Primary Care Provider] - See instructions Activity Restrictions/Add. Instructions Additional Instructions/Restrictions: You were evaluated in the ER and are appropriate for discharge at this time. Take Tylenol, ibuprofen if needed for fever, body aches, sore throat. Drink plenty of fluids and eat a small snack each time you take these medications to avoid side effects. Take your home medications as previously prescribed. Make an appointment with your primary care doctor for reevaluation in 2 to 3 days. Return to the ER with any new, worsening, or otherwise concerning symptoms. Clinical Impressions Clinical Impression: Cough, Nasal congestion, Sore throat Instructions Patient Instructions: Cough Print Language Print Language: B[place]ian Discharge ED Provider: Solomon Rodriguez Adult HPI General Chief complaint: Upper Respiratory Infection Stated complaint: Sore throat Time Seen by Provider: 03/17/25 23:13 Mode of Arrival: Ambulatory Source of Information: Patient Description of Symptoms (Recalled from ER Triage Doc. by RN): Pt presents for evaluation sore throat, cough, and nasal congestion History of Present Illness HPI narrative: 25-year-old male with history of asthma presents to the ER for cough, nasal congestion, sore throat. He states symptoms started 3 days ago. He states he started with just mild sore throat but it has gotten slightly worse and he developed the other symptoms as well. He states Mucinex has helped. He is not having fevers or chills. No chest pain or difficulty breathing, no wheezing, no nausea, vomiting, diarrhea, or abdominal pain. No other associated symptoms. Related Data Home Medications ?Medication ?Instructions ?Recorded ?Confirmed albuterol sulfate 90 mcg/actuation 2 puff inhalation Q4HP PRN Asthma 07/09/24 07/09/24 aerosol inhaler (Ventolin HFA) cetirizine 10 mg tablet 10 mg PO DAILY 07/09/24 07/09/24 fluticasone propionate 50 1 spray intranasal DAILY 07/09/24 07/09/24 mcg/actuation nasal spray,suspension montelukast 10 mg tablet 10 mg PO DAILY 07/09/24 07/09/24 Previous Rx's ?Medication ?Instructions ?Recorded azithromycin 250 mg tablet 250 mg PO UD DOSE PK #6 tabs 07/09/24 (Zithromax) jmtrfizuibxoush-qyecadkisimwogj-EV 5 ml PO Q6H PRN Cough #240 mL 07/09/24 2 mg-30 mg-10 mg/5 mL oral syrup (Bromfed DM) Allergies Allergy/AdvReac Type Severity Reaction Status Date / Time amoxicillin (From AMOXIL) Allergy Intermediate I-RASH Verified 01/18/24 14:45 [facility] Disclaimer: The information contained in this section may have been updated after the patient was seen, as this information can be updated by other users. Medical History Asthma Surgical History H/O thumb surgery Family History Other No significant family history Social History Smoking Status: Never smoker alcohol intake: never current occupational status: employed Travel in the last 8 weeks?: None household members: family Have you lived/traveled outside US in past 30 days?: No Contact w/someone who lives/traveled outside US past 30 days?: No Exposure to someone with infectious disease in past 14 days?: No Do you have a fever (greater than 100.4 F or 38 C)?: No Have you tested positive for COVID-19?: No Exposed to someone with COVID-19 in past 14 days?: No Do you have a sore throat?: Yes Do you have a cough?: No Do you have any weakness?: No Do you have any diarrhea?: No Are you experiencing any unusual bleeding?: No Do you have any muscle aches/pain?: No Do you have any abdominal pain?: No Are you experiencing loss of taste or smell?: No Other Medical History Have you received the Flu Vaccine for this season: No Have you received the Pneumonia Vaccine: No ROS Obtained: Yes Systems reviewed as appropriate & no additional complaints except as documented Per HPI Physical Exam General General appearance: alert and in no apparent distress Head Head exam: atraumatic and normocephalic Eye Eye exam: Present PERRL and EOMI ENT ENT exam: Present mucous membranes moist and other (Mild posterior oropharyngeal erythema, no tonsillomegaly, no exudates) Neck Neck exam: Present normal inspection and full ROM; Absent lymphadenopathy Chest Chest inspection: Present symmetric chest wall rise Respiratory Respiratory exam: Present normal lung sounds bilaterally and other (Saturating 98% on room air); Absent respiratory distress, wheezes or stridor Cardiovascular Cardiovascular exam: Present regular rate and normal rhythm Abdominal Exam Abdominal exam: Present soft; Absent distention or tenderness Extremities Exam Extremities exam: Present full ROM Neurological Exam Neurological exam: Present alert and oriented X3; Absent motor sensory deficit Psychiatric Psychiatric exam: Present normal affect and normal mood Skin Skin exam: Present warm and dry Medical Decision Making Medical Records Medical records reviewed: Yes I reviewed the patient's medical records. Screening: Per USPSTF and CDC recommendations, given the prevalence of disease in our region, it is our hospital?s policy to screen for HIV and viral Hepatitis for all patients aged 18 and over and those with ongoing risk factors. MR Comment: Patient was seen a few weeks ago in this ER and was believed to have razor bumps at that time Mushtaq Inquiry Pt receiving controlled substance: No Vital Signs: 03/17/25 22:29 Temperature 98.7 F Temperature Source Oral Pulse Rate [Right] 58 L Respiratory Rate 18 Blood Pressure [Right Arm] 155/98 H Blood Pressure Mean [Right Arm] 117 Blood Pressure Source [Right Arm] Automatic Cuff Blood Pressure Position [Right Arm] Sitting 02 Sat by Pulse Oximetry 98 Oxygen Delivery Method Room Air Lab Data Lab Results 03/17/25 22:32: SARS-CoV-2 (PCR) Not detected, Influenza A Untype (PCR) Not detected, Influenza Type B (PCR) Not detected, Group A Strep Rapid Negative Orders (Tests/Meds): ORDERS Category Date Time Status Rapid PCR Covid and Flu A/B Stat Lab 03/17/25 22:32 Completed Strep Scrn Group A (Rapid) Stat Lab 03/17/25 22:32 Completed Strep Screen Confirmation Stat Micro 03/17/25 22:32 Received Medical Decision Narrative: In summary, this 25-year-old male with history of asthma presents to the emergency department today with cough, nasal congestion, sore throat. On initial evaluation patient is hemodynamically stable, afebrile, lungs clear bilaterally with good air movement saturating well on room air, posterior oropharynx with mild erythema, no tonsillomegaly, no tonsillar exudate. Remainder of exam benign. Patient overall well-appearing. 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 Viral swab and strep swab had been performed. I reviewed these results which are negative. I believe patient is appropriate for discharge at this time. We discussed home symptomatic monitoring and management, follow-up instructions, and strict return precautions for the ER. He indicated understanding and the patient was discharged in stable condition. Critical Care Critical Care Time Critical Care Time: No
[2025-03-17 23:28] VITALS: BP 116/78; PULSE 89; RESP 18; TEMP 36.6; O2SAT 98
== END 2025-03-17 23:28 | disposition home or self-care (01) ==
PROVIDERS: Student in an Organized Health Care Education/Training Program; Emergency Provider Emergency Medicine; PCP Family Medicine
DX: R07.0 Pain in throat (principal); R09.81 Nasal congestion
CPT/HCPCS: 87430; 87636; 99283